=== PATIENT | male | born 1990 | race Caucasian/White ===

== ENCOUNTER 2024-03-13 09:32 | Emergency (ER) | payer SELFPAY ==
[2024-03-13 09:45] VITALS: BP 142/87; PULSE 81; RESP 16; TEMP 36.7; O2SAT 100; BMI 32.0
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
[2024-03-13 10:59] VITALS: BP 142/87; PULSE 81; RESP 16; TEMP 36.7; O2SAT 100
== END 2024-03-13 11:00 | disposition home or self-care (01) ==
PROVIDERS: Emergency Provider Emergency Medicine
DX: S70.11XA Contusion of right thigh, initial encounter (principal); S39.012A Strain of muscle, fascia and tendon of lower back, initial encounter; V03.00XA Pedestrian on foot injured in collision with car, pick-up truck or van in nontraffic accident, initial encounter; Y93.89 Activity, other specified; Y92.9 Unspecified place or not applicable; Y99.9 Unspecified external cause status
CPT/HCPCS: 99283; 99284

== ENCOUNTER 2024-09-01 08:43 | Outpatient (REF) | payer MEDICAID, SELFPAY ==
[2024-09-01 11:41] LABS: Syphilis Screen Nonreactive (Nonreactive)
[2024-09-02 19:38] LABS: Rubella IgG Antibody 5.39 Index
[2024-09-04 16:24] LABS: Quantiferon TB Gold Plus 1 NEGATIVE (NEGATIVE); TB Test (QFT) Nil 0.03 IU/mL; TB Test (QFT) Plus TB1 -Nil 0.01 IU/mL; TB Test (QFT) Plus TB2 -Nil 0.01 IU/mL
== END 2024-09-01 08:44 | disposition home or self-care (01) ==
LOC: HO.LAB 08:43
PROVIDERS: Visit Provider Internal Medicine Infectious Disease
DX: Z00.00 Encounter for general adult medical examination without abnormal findings (principal)
CPT/HCPCS: 36415; 86480; 86735; 86762; 86765; 86780; 86787